=== PATIENT | female | born 2000 | race Caucasian/White ===

== ENCOUNTER 2018-10-23 19:00 | Inpatient (IN) | payer SELFPAY ==
--- NOTE | 2018-10-23 19:28 | PDOC ---
Rapid Medical Evaluation Medical Evaluation: 10/23/18 19:23 I have performed a brief in-person evaluation of this patient. The patient presents with a chief complaint of:Fever w/ cough, bodyaches, weakness and n/v x several days. No sob/CP. No sick contacts or recent travel. No sig hx Pertinent physical exam findings:T 104.6, HR 145, ill appearing I have ordered the following:labs/flu/cxr The patient will proceed to the ED for further evaluation Discharge Disposition - Diagnosis Malaise - Referrals - Patient Instructions - Post Discharge Activity
[2018-10-23] MEDS ORDERED: ACETAMINOPHEN 325 MG TABLET (FP) PO ONE (19:33)
[2018-10-23] MEDS ORDERED: SODIUM CHLORIDE 1,000 ML IV STA (19:33)
[2018-10-23] MEDS ORDERED: ONDANSETRON 4 MG/2 ML VIAL IVPUSH ONE (19:41)
[2018-10-23] MEDS ORDERED: ACETAMINOPHEN 1000 MG/100 ML VIAL (NON FORMULARY) IVPB ONE (20:03)
[2018-10-23] MEDS ORDERED: ALBUTEROL SO4 2.5/IPRATROPIUM 0.5 INH SOL 3 ML VIAL.NEB. NEB ONE (20:03)
[2018-10-23 20:08] LABS: BASO % 0.3 % (0-2.0); HEMATOCRIT 37.9 % (32.4-45.2); HEMOGLOBIN 12.6 GM/dL (10.7-15.3); LYMPH % 7.8 % (8-40); MCH 22.6 pg (25.7-33.7); MCHC 33.1 g/dl (32.0-36.0); MEAN CELL VOLUME 68.3 fl (80-96); MEAN PLT VOLUME 7.8 fl (7.5-11.1); MONO % 7.8 % (3.8-10.2); NEUT % 84.1 % (42.8-82.8); PLATELET COUNT 320 K/MM3 (134-434); RBC 5.56 M/mm3 (3.60-5.2); RDW 14.2 % (11.6-15.6)
--- NOTE | 2018-10-23 20:11 | PDOC ---
History of Present Illness - General Chief Complaint: Cold Symptoms Stated Complaint: FEVER Time Seen by Provider: 10/23/18 19:20 History Source: Patient Exam Limitations: No Limitations - History of Present Illness Initial Comments: 10/23/18 20:05 18 year old female with PMH asthma presented to ED for N/V/D/fever x2-3 days. She stated her fever was 104F today, but she did not take tylenol. She admitted to productive white cough, vomiting 5 times a day (yellow, denied blood), diarrhea 5 times a day (brown, loose, denied blood). She stated her LMP was yesterday. She denied abdominal pain, chest pain, palpitations, dysuria. Pt denied past intubations for asthma, stated last hospital admission for asthma was multiple years ago, uses albuterol inhaler 1X a week. Allergies: PCN (airway swelling) Past History - Past Medical History Allergies/Adverse Reactions: Allergies Allergy/AdvReac Type Severity Reaction Status Date / Time Penicillins Allergy Severe Hives Verified 10/23/18 20:42 Home Medications: Ambulatory Orders NK [No Known Home Medication] 10/23/18 COPD: No - Suicide/Smoking/Psychosocial Hx Smoking History: Never smoked Have you smoked in the past 12 months: No Information on smoking cessation initiated: No Hx Alcohol Use: No Drug/Substance Use Hx: No Review of Systems - Review of Systems Able to Perform ROS?: Yes Comments:: 10/23/18 20:07 General: denied fever, chills, night sweats, generalized weakness. HEENT: denied sore throat, rhinorrhea, ear pain. Heart: denied chest pain, palpitations, syncope, lower extremity swelling, diaphoresis. Respiratory: admitted to cough, shortness of breath, sputum production. denied hemoptysis. Abdomen: admitted to nausea, vomiting, diarrhea. denied abdominal pain, constipation, blood in stool. : denied dysuria, increased urinary frequency, hematuria, urinary incontinence , flank pain. Back: denied back pain. Musculoskeletal: admitted to body aches. Neurological: denied headache, dizziness, numbness, tingling, weakness. Skin: denied rash, laceration, abrasion. *Physical Exam - Vital Signs Last Vital Signs Temp Pulse Resp BP Pulse Ox 104.6 F H 145 H 18 126/81 100 10/23/18 19:27 10/23/18 19:27 10/23/18 19:27 10/23/18 19:27 10/23/18 19:27 - Physical Exam Comments: 10/23/18 20:10 Constitutional: Well-nourished, Well-developed, appearing stated age. HEENT: head is normocephalic, atraumatic. EOMI. PERRLA. no posterior pharyngeal erythema. no tonsillar exudates. Neck: supple. Full ROM. Heart: regular rhythm. no murmurs, rubs or gallops. Lungs: wheezing bilaterally. no crackles/rhonchi. Abdomen: soft, nontender. normal bowel sounds. no rebound, guarding, masses. Extremities: Peripheral pulses intact. No lower extremity edema. Neurological: CN 2-12 grossly intact. Moves all four extremities. Psych: awake, alert, oriented x3. Follows commands. Answers questions appropriately. Moderate Sedation - Procedure Monitoring Vital Signs: Procedure Monitoring Vital Signs Temperature 104.6 F H 10/23/18 19:27 Pulse Rate 145 H 10/23/18 19:27 Respiratory Rate 18 10/23/18 19:27 Blood Pressure 126/81 10/23/18 19:27 O2 Sat by Pulse Oximetry (%) 100 10/23/18 19:27 ED Treatment Course - LABORATORY CBC & Chemistry Diagram: 10/24/18 05:00 10/24/18 05:00 Medical Decision Making - Medical Decision Making 10/23/18 20:19 MDM: 18 year old female with above PMH presented to ED for nausea/vomiting/ diarrhea/sore throat/productive cough/body aches x2-3 days. Initial Vital Signs Temp Pulse Resp BP Pulse Ox 104.6 F H 145 H 18 126/81 100 10/23/18 19:27 10/23/18 19:27 10/23/18 19:27 10/23/18 19:27 10/23/18 19:27 Febrile. Tachycardic. No tachypnea. Within normal range of blood pressure for age. No hypoxia on room air. Labs ordered: CBC, CMP, UA/UC, urine , influenza A/B testing Imaging ordered: CXR Medications ordered: duonebs, zofran, 1000 cc bolus normal saline, methylprednisolone EKG performed at 2134: rate 116, regular rhythm, QTC 458, flat T in aVL. no U wave. no RI prolongation. CBC WBC 29.7 K/mm3 (4.0-10.0) H 10/23/18 20:00 RBC 5.56 M/mm3 (3.60-5.2) H 10/23/18 20:00 Hgb 12.6 GM/dL (10.7-15.3) 10/23/18 20:00 Hct 37.9 % (32.4-45.2) 10/23/18 20:00 MCV 68.3 fl (80-96) L 10/23/18 20:00 MCH 22.6 pg (25.7-33.7) L 10/23/18 20:00 MCHC 33.1 g/dl (32.0-36.0) 10/23/18 20:00 RDW 14.2 % (11.6-15.6) 10/23/18 20:00 Plt Count 320 K/MM3 (134-434) 10/23/18 20:00 MPV 7.8 fl (7.5-11.1) 10/23/18 20:00 Absolute Neuts (auto) 25.0 K/mm3 (1.5-8.0) H 10/23/18 20:00 Neutrophils % 84.1 % (42.8-82.8) H 10/23/18 20:00 Lymphocytes % 7.8 % (8-40) L 10/23/18 20:00 Monocytes % 7.8 % (3.8-10.2) 10/23/18 20:00 Eosinophils % 0.0 % (0-4.5) 10/23/18 20:00 Basophils % 0.3 % (0-2.0) 10/23/18 20:00 Nucleated RBC % 0 % (0-0) 10/23/18 20:00 Leukocytosis with left shift. No anemia. No thrombocytopenia. CMP Sodium 135 mmol/L (136-145) L 10/23/18 20:00 Potassium 3.1 mmol/L (3.5-5.1) L 10/23/18 20:00 Chloride 99 mmol/L (98-107) 10/23/18 20:00 Carbon Dioxide 23 mmol/L (21-32) 10/23/18 20:00 Anion Gap 14 MMOL/L (8-16) 10/23/18 20:00 BUN 8 mg/dL (7-18) 10/23/18 20:00 Creatinine 1.1 mg/dL (0.55-1.3) 10/23/18 20:00 Creat Clearance w eGFR > 60 (>60) 10/23/18 20:00 Random Glucose 126 mg/dL (74-106) H 10/23/18 20:00 Calcium 8.5 mg/dL (8.5-10.1) 10/23/18 20:00 Total Bilirubin 1.1 mg/dL (0.2-1) H 10/23/18 20:00 AST 7 U/L (15-37) L 10/23/18 20:00 ALT 13 U/L (13-61) 10/23/18 20:00 Alkaline Phosphatase 123 U/L (45-117) H 10/23/18 20:00 Total Protein 7.6 g/dl (6.4-8.2) 10/23/18 20:00 Albumin 3.3 g/dl (3.4-5.0) L 10/23/18 20:00 Hypokalemia. No transaminitis. No COREY. Normal cardiac enzymes. Mild elevation of ALP. Medications ordered: Kcl 10 mEq x3. Pt to receive 10 mEq per hour. Urine Test Results Urine Color Apple 10/23/18 20:15 Urine Appearance Slcloudy 10/23/18 20:15 Urine pH 5.0 (5.0-8.0) 10/23/18 20:15 Ur Specific [place] 1.032 (1.010-1.035) 10/23/18 20:15 Urine Protein 2+ (NEGATIVE) H 10/23/18 20:15 Urine Glucose (UA) Negative (NEGATIVE) 10/23/18 20:15 Urine Ketones 1+ (NEGATIVE) H 10/23/18 20:15 Urine Blood 1+ (NEGATIVE) H 10/23/18 20:15 Urine Nitrite Negative (NEGATIVE) 10/23/18 20:15 Urine Bilirubin Negative (<2.0 mg/dL) 10/23/18 20:15 Ur Leukocyte Esterase Negative (NEGATIVE) 10/23/18 20:15 Urine test negative. No evidence of UTI. Ketones, blood and protein in urine. 10/23/18 21:23 Influenza testing negative. 10/23/18 21:27 Pt reassessed, stated she feels her breathing and body aches have improved. Lung examination: wheezing bilaterally. Influenza testing negative. 10/23/18 21:47 CXR: LLL infiltrate concerning for pneumonia. Medications ordered: Levaquin 750 mg - Pt is pcn allergic Vital Signs Temperature 100.3 F H 10/23/18 21:49 Pulse Rate 111 H 10/23/18 21:49 Respiratory Rate 18 10/23/18 21:49 Blood Pressure 141/83 10/23/18 21:49 O2 Sat by Pulse Oximetry (%) 96 10/23/18 21:49 Febrile, but improving. Tachycardic, but improving. No hypotension. No hypoxia on room air. No tachypnea. I spoke with Dr. Poole about the case, who will admit the patient for pneumonia. *DC/Admit/Observation/Transfer Diagnosis at time of Disposition: Malaise, Febrile illness, Hypokalemia, Tachycardia, Asthma exacerbation, Pneumonia - Discharge Dispostion Condition at time of disposition: Improved Decision to Admit order: Yes - Referrals - Patient Instructions - Post Discharge Activity
[2018-10-23 20:15] LABS: WHITE BLOOD COUNT 29.7 K/mm3 (4.0-10.0)
--- NOTE | 2018-10-23 20:16 | PDOC ---
Attending Attestation - HPI HPI: 10/23/18 20:48 18YOF, with a significant past medical history of asthma, who presents to the emergency department with, 4 days of generalized weakness, body aches, productive cough, vomiting, diarrhea, and fevers (104.5F). Patient notes taking DayQuil and NyQuil, without relief prompting her visit to the ER tonight. No other sick contacts or travel. She denies recent dizziness. She denies recent dysuria, frequency, urgency or hematuria. She denies recent chest pain or shortness of breath. Allergies: Penicillins. Past surgical history: None reported. Social history: Nonsmoker. Denies EtOH use and recreational drug use. - Physicial Exam PE: 10/23/18 20:48 +malaise appearing, MMM, nl conjunctiva, anicteric; neck supple. +Bilateral wheezing, +Tachycardic, abdomen soft nontender. VAZQUEZ x4, no focal neuro deficits. No peripheral edema. normal color for ethnicity, WWP. <Isidoro Canela - Last Filed: 10/23/18 20:47> - Resident Resident Name: Falguni Dominguez - ED Attending Attestation I have performed the following: I have examined & evaluated the patient, The case was reviewed & discussed with the resident, I agree w/resident's findings & plan - Medical Decision Making 10/23/18 20:44 I, Kaylee Diallo MD, attest that this document has been prepared under my direction and personally reviewed by me in its entirety. I further attest, that it accurately reflects all work, treatment, procedures and medical decision -making performed by me. DDx. viral syndrome, influenza, dehydration, electrolyte/metabolic derangements , lactic acidosis, pneumonia, asthma exacerbation, gastroenteritis. See HPI for details Vital signs reviewed, +fever 104, +tachycardic to 140s; no respiratory distress , though wheezing. Prior notes reviewed, including admissions, discharges and consultations. laboratory results and imaging reviewed, basic labs, notable for +Leukocytosis of 29K, low potassium 3.1 - repleated, otherwise wnl. also normal lactic, reassuring. UA_negative for infection, neg preg test. Flu negative CXR_?infiltrate, hilar prominance, suspected pneumonia EKG sinus tachycardia, no interval abnormalities, narrow QRS, ST and T wave segments and morphology normal. Nonspecific T wave abnormalities ED course: potassium repleted with K-rider, IVF hydration copiously, tylenol, zofran. blood cultures pending. repeat VS improved, defervesced cxr +pneumonia, treat with Levaquin IV abx given severity of sx Dispo: Admit for supportive care, hydration, febrile illness 2/2 pneumonia, dehydration, electrolyte abnormalities. Discussed results and management plan with pt at bedside, agree with impression and plan 10/23/18 22:29 10/23/18 22:30 <Kaylee Diallo - Last Filed: 10/23/18 22:31> Heart Score/ECG Review - ECG Impressions Normal ECG: No Tachycardia: Sinus Comment:: 10/23/18 22:29 EKG sinus tachycardia, no interval abnormalities, narrow QRS, ST and T wave segments and morphology normal. Nonspecific T wave abnormalities <Kaylee Diallo - Last Filed: 10/23/18 22:31> Attestations - Attestations 10/23/18 20:48 Documentation prepared by Isidoro Canela, acting as medical affairs manager for Kaylee Diallo MD. <Isidroo Canela - Last Filed: 10/23/18 20:47>
[2018-10-23 20:35] LABS: URINE APPEARANCE SLCLOUDY; URINE BILIRUBIN NEGATIVE (<2.0 mg/dL); URINE COLOR AMBER; URINE GLUCOSE (UA) NEGATIVE (NEGATIVE); URINE KETONE 1+ (NEGATIVE); URINE LEUK ESTERASE NEGATIVE (NEGATIVE); URINE NITRITE NEGATIVE (NEGATIVE); URINE PROTEIN 2+ (NEGATIVE)
[2018-10-23 20:40] LABS: ALBUMIN 3.3 g/dl (3.4-5.0); ALK PHOS 123 U/L (45-117); ANION GAP 14 MMOL/L (8-16); BILIRUBIN,TOTAL 1.1 mg/dL (0.2-1); BLOOD UREA NITROGEN 8 mg/dL (7-18); CALCIUM 8.5 mg/dL (8.5-10.1); CHLORIDE 99 mmol/L (98-107); CO2 23 mmol/L (21-32); CREATININE 1.1 mg/dL (0.55-1.3); GLUCOSE,RANDOM 126 mg/dL (74-106); POTASSIUM 3.1 mmol/L (3.5-5.1); SGOT/AST 7 U/L (15-37); SGPT/ALT 13 U/L (13-61); SODIUM 135 mmol/L (136-145); TOT PROT 7.6 g/dl (6.4-8.2)
[2018-10-23] MEDS ORDERED: methylPREDNISolone NA SUCC 125 MG/2 ML VIAL IVPUSH ONE (20:42)
[2018-10-23] MEDS ORDERED: KCL 10 MEQ IVPB 30 MEQ/300 ML INFUS.BAG IVPB ONE (20:51)
[2018-10-23] MEDS ORDERED: methylPREDNISolone NA SUCC 125 MG/2 ML VIAL ONE (20:51)
[2018-10-23 20:54] LABS: EPI CELLS RARE /HPF (FEW); URINE MUCUS MANY
[2018-10-23 20:57] LABS: PLATELET ESTIMATE ADEQUATE
[2018-10-23] MEDS ORDERED: AZITHROMYCIN 500 MG TABLET PO ONE (21:49)
[2018-10-23] MEDS ORDERED: ONDANSETRON 4 MG/2 ML VIAL IVPB PRN (21:54)
--- NOTE | 2018-10-23 21:59 | HP ---
Admitting History and Physical - Primary Care Physician PCP: Pushpa Poole - Admission History of Present Illness: 18 year old female with PMH asthma presented to ED for N/V/D/fever x2-3 days. She stated her fever was 104F today, but she did not take tylenol. She admitted to productive white cough, vomiting 5 times a day (yellow, denied blood), diarrhea 5 times a day (brown, loose, denied blood). She stated her LMP was yesterday. She denied abdominal pain, chest pain, palpitations, dysuria. Pt denied past intubations, stated last hospital admission for asthma was multiple years ago, uses albuterol inhaler 1X a week. - Past Medical History Pulmonary: Yes: Asthma - Smoking History Smoking history: Never smoked Have you smoked in the past 12 months: No - Alcohol/Substance Use Hx Alcohol Use: No Home Medications - Allergies Allergies/Adverse Reactions: Allergies Allergy/AdvReac Type Severity Reaction Status Date / Time Penicillins Allergy Severe Hives Verified 10/23/18 20:42 - Home Medications Home Medications: Ambulatory Orders Levofloxacin [Levaquin] 500 mg PO DAILY #7 tablet 10/24/18 Albuterol Sulfate Inhaler - [Ventolin HFA Inhaler -] 1 puff IH Q4H #1 inhaler Prednisone 10 mg PO ASDIR #30 tablet 10/25/18 Physical Examination Vital Signs: Vital Signs Temperature 100.3 F H 10/23/18 21:49 Pulse Rate 111 H 10/23/18 21:49 Respiratory Rate 18 10/23/18 21:49 Blood Pressure 141/83 10/23/18 21:49 O2 Sat by Pulse Oximetry (%) 96 10/23/18 21:49 Constitutional: Yes: Calm HENT: Yes: Atraumatic Neck: Yes: Supple Cardiovascular: Yes: Regular Rate and Rhythm Respiratory: Yes: Rales, Rhonchi, Wheezes Gastrointestinal: Yes: Normal Bowel Sounds Extremities: Yes: WNL Edema: No Neurological: Yes: Alert, Oriented Labs: CBC, BMP 10/23/18 20:00 10/23/18 20:00 Imaging - Results X-ray: Report Reviewed, Image Reviewed Problem List - Problems (1) Asthma exacerbation Assessment/Plan: prn nebs iv steroids pulmonary consult Code(s): J45.901 - UNSPECIFIED ASTHMA WITH (ACUTE) EXACERBATION (2) Hypokalemia Assessment/Plan: will replace Code(s): E87.6 - HYPOKALEMIA (3) Pneumonia Assessment/Plan: iv abx prn tylenol for fever Code(s): J18.9 - PNEUMONIA, UNSPECIFIED ORGANISM Assessment/Plan Laboratory Tests 10/23/18 10/23/18 10/23/18 19:34 20:00 20:00 WBC 29.7 H RBC 5.56 H Hgb 12.6 Hct 37.9 MCV 68.3 L MCH 22.6 L MCHC 33.1 RDW 14.2 Plt Count 320 MPV 7.8 Absolute Neuts (auto) 25.0 H Neutrophils % 84.1 H Neutrophils % (Manual) 80.0 Band Neutrophils % 6.0 Lymphocytes % 7.8 L Lymphocytes % (Manual) 8.0 Monocytes % 7.8 Monocytes % (Manual) 3 L Eosinophils % 0.0 Eosinophils % (Manual) 0.0 Basophils % 0.3 Basophils % (Manual) 0.0 Nucleated RBC % 0 Platelet Estimate Adequate Microcytosis 1+ Sodium 135 L Potassium 3.1 L Chloride 99 Carbon Dioxide 23 Anion Gap 14 BUN 8 Creatinine 1.1 Creat Clearance w eGFR > 60 Random Glucose 126 H Lactic Acid Calcium 8.5 Total Bilirubin 1.1 H AST 7 L ALT 13 Alkaline Phosphatase 123 H Total Protein 7.6 Albumin 3.3 L Urine Color Urine Appearance Urine pH Ur Specific [place] Urine Protein Urine Glucose (UA) Urine Ketones Urine Blood Urine Nitrite Urine Bilirubin Urine Urobilinogen Ur Leukocyte Esterase Urine WBC (Auto) Urine RBC (Auto) Ur Epithelial Cells Urine Mucus Urine HCG, Qual Influenza A (Rapid) Negative Influenza B (Rapid) Negative 10/23/18 10/23/18 10/23/18 20:00 20:15 20:15 WBC RBC Hgb Hct MCV MCH MCHC RDW Plt Count MPV Absolute Neuts (auto) Neutrophils % Neutrophils % (Manual) Band Neutrophils % Lymphocytes % Lymphocytes % (Manual) Monocytes % Monocytes % (Manual) Eosinophils % Eosinophils % (Manual) Basophils % Basophils % (Manual) Nucleated RBC % Platelet Estimate Microcytosis Sodium Potassium Chloride Carbon Dioxide Anion Gap BUN Creatinine Creat Clearance w eGFR Random Glucose Lactic Acid 1.1 Calcium Total Bilirubin AST ALT Alkaline Phosphatase Total Protein Albumin Urine Color [place] Urine Appearance Slcloudy Urine pH 5.0 Ur Specific [place] 1.032 Urine Protein 2+ H Urine Glucose (UA) Negative Urine Ketones 1+ H Urine Blood 1+ H Urine Nitrite Negative Urine Bilirubin Negative Urine Urobilinogen 2.0 H Ur Leukocyte Esterase Negative Urine WBC (Auto) 8 Urine RBC (Auto) 5 Ur Epithelial Cells Rare Urine Mucus Many Urine HCG, Qual Negative Influenza A (Rapid) Influenza B (Rapid) Active Medications Generic Name Dose Route Start Last Admin Trade Name Freq PRN Reason Stop Dose Admin Acetaminophen 1,000 mg 10/23/18 22:00 Ofirmev Injection - IVPB Q6H-IV BRYAN Potassium Chloride 10 meq in 100 mls @ 100 mls/hr 10/23/18 20:45 Potassium Chloride 10 Meq Premix Ivpb - IVPB 10/23/18 23:44 Q60M BRYAN Levofloxacin 750 mg in 150 mls @ 100 mls/hr 10/23/18 21:53 Levaquin 750 Mg Premixed Ivpb - IVPB 10/23/18 23:22 ONCE ONE Protocol Levofloxacin 500 mg in 100 mls @ 100 mls/hr 10/24/18 10:00 Levaquin 500 Mg Premixed Ivpb - IVPB DAILY BRYAN Protocol Sodium Chloride 1,000 mls @ 100 mls/hr 10/23/18 22:00 Normal Saline - IV ASDIR BRYAN Ondansetron HCl 4 mg 10/23/18 21:54 Zofran Injection IVPB Q4H PRN NAUSEA AND/OR VOMITING
[2018-10-23] MEDS ORDERED: SODIUM CHLORIDE 1,000 ML IV SCH (22:00)
[2018-10-23] MEDS ORDERED: ACETAMINOPHEN 1000 MG/100 ML VIAL (NON FORMULARY) IVPB SCH (22:00)
[2018-10-23] MEDS ORDERED: ACETAMINOPHEN 1000 MG/100 ML VIAL (NON FORMULARY) IVPB PRN (22:28)
[2018-10-23] MEDS ORDERED: IPRATROPIUM BR 0.02% 0.5 MG/2.5 ML VIAL.NEB. NEB PRN (22:30)
[2018-10-23] MEDS: KCL 10 MEQ IVPB 10 MEQ/100 ML INFUS.BAG IVPB SCH (22:45)
[2018-10-24] MEDS: KCL 10 MEQ IVPB 10 MEQ/100 ML INFUS.BAG IVPB SCH ×2 (01:05→03:24)
[2018-10-24] MEDS ORDERED: methylPREDNISolone NA SUCC 125 MG/2 ML VIAL ONE (03:35)
[2018-10-24] MEDS: methylPREDNISolone NA SUCC 40 MG/1 ML VIAL IVPUSH SCH ×3 (03:56→18:06)
[2018-10-24 05:33] LABS: BASO % 0.2 % (0-2.0); HEMOGLOBIN 11.2 GM/dL (10.7-15.3); LYMPH % 4.6 % (8-40); MCH 21.6 pg (25.7-33.7); MCHC 31.1 g/dl (32.0-36.0); MEAN CELL VOLUME 69.4 fl (80-96); MEAN PLT VOLUME 7.6 fl (7.5-11.1); MONO % 2.4 % (3.8-10.2); NEUT % 92.8 % (42.8-82.8); PLATELET COUNT 269 K/MM3 (134-434); RBC 5.19 M/mm3 (3.60-5.2); RDW 14.2 % (11.6-15.6); WHITE BLOOD COUNT 21.8 K/mm3 (4.0-10.0)
[2018-10-24 06:04] LABS: ALBUMIN 2.8 g/dl (3.4-5.0); ALK PHOS 109 U/L (45-117); ANION GAP 11 MMOL/L (8-16); BILIRUBIN,TOTAL 0.7 mg/dL (0.2-1); BLOOD UREA NITROGEN 8 mg/dL (7-18); CALCIUM 7.8 mg/dL (8.5-10.1); CHLORIDE 104 mmol/L (98-107); CO2 24 mmol/L (21-32); CREATININE 0.7 mg/dL (0.55-1.3); GLUCOSE,RANDOM 154 mg/dL (74-106); POTASSIUM 3.6 mmol/L (3.5-5.1); SGOT/AST 4 U/L (15-37); SGPT/ALT 12 U/L (13-61); SODIUM 138 mmol/L (136-145); TOT PROT 6.7 g/dl (6.4-8.2)
[2018-10-24 12:10] LABS: ANISOCYTOSIS 1+; MACROCYTOSIS 0; PLATELET ESTIMATE NORMAL
--- NOTE | 2018-10-24 12:57 | EKG ---
Test Reason : Blood Pressure : / mmHG Vent. Rate : 116 BPM Atrial Rate : 116 BPM P-R Int : 134 ms QRS Dur : 104 ms QT Int : 330 ms P-R-T Axes : 065 267 058 degrees QTc Int : 458 ms SINUS TACHYCARDIA RIGHT SUPERIOR AXIS DEVIATION ABNORMAL ECG NO PREVIOUS ECGS AVAILABLE Confirmed by Ko Sims ([id number]) on 10/24/2018 12:57:27 PM Referred By: Confirmed By:Ko Sims
[2018-10-24] MEDS ORDERED: ONDANSETRON 4 MG/2 ML VIAL IVPB PRN (13:40)
[2018-10-24] MEDS ORDERED: SODIUM CHLORIDE 1,000 ML IV SCH (13:40)
--- NOTE | 2018-10-24 14:21 | CON.ID ---
Consult Consult Specialty:: infectious diseases Referred by:: Reason for Consultation:: pneumonia - History of Present Illness Chief Complaint: cough fever,dirrhoea History of Present Illness: 18YOF, with a significant past medical history of asthma, who presents to the emergency department with, 4 days of generalized weakness, body aches, productive cough, vomiting, diarrhea, and fevers (104.5F). Patient notes taking DayQuil and NyQuil, without relief prompting her visit to the ER tonight. No other sick contacts or travel. She denies recent dizziness. She denies recent dysuria, frequency, urgency or hematuria. She denies recent chest pain or shortness of breath. currently patient is feeling much better also when worked up patient has leukocytosis which trending down and pneumonia on imaging studies patient allergic to pcn and was started on levaquin - History Source History Provided By: Patient Limitations to Obtaining History: No Limitations - Alcohol/Substance Use Hx Alcohol Use: No - Smoking History Smoking history: Never smoked Have you smoked in the past 12 months: No Home Medications - Allergies Allergies/Adverse Reactions: Allergies Allergy/AdvReac Type Severity Reaction Status Date / Time Penicillins Allergy Severe Hives Verified 10/23/18 20:42 - Home Medications Home Medications: Ambulatory Orders NK [No Known Home Medication] 10/23/18 Review of Systems - Review of Systems Constitutional: reports: Fever, Weakness Eyes: reports: No Symptoms HENT: reports: No Symptoms Neck: reports: No Symptoms Cardiovascular: reports: No Symptoms Respiratory: reports: Cough, SOB, Other (cough) Gastrointestinal: reports: Diarrhea Genitourinary: reports: No Symptoms Musculoskeletal: reports: No Symptoms Integumentary: reports: No Symptoms Neurological: reports: No Symptoms Endocrine: reports: No Symptoms Hematology/Lymphatic: reports: No Symptoms Psychiatric: reports: No Symptoms Physical Exam Vital Signs: Vital Signs Temperature 97.9 F 10/24/18 13:11 Pulse Rate 74 10/24/18 13:11 Respiratory Rate 18 10/24/18 13:11 Blood Pressure 124/76 10/24/18 13:11 O2 Sat by Pulse Oximetry (%) 98 10/24/18 13:11 Constitutional: Yes: Well Nourished, No Distress, Calm, Obese Eyes: Yes: Conjunctiva Clear HENT: Yes: Atraumatic, Normocephalic Neck: Yes: Supple, Trachea Midline Cardiovascular: Yes: Regular Rate and Rhythm Respiratory: Yes: Regular, Other (crackles) Gastrointestinal: Yes: Normal Bowel Sounds, Soft Musculoskeletal: Yes: WNL Extremities: Yes: WNL Neurological: Yes: Alert, Oriented Psychiatric: Yes: Alert, Oriented Labs: CBC, BMP 10/24/18 05:00 10/24/18 05:00 Imaging - Results Chest X-ray: Report Reviewed, Image Reviewed Assessment/Plan fever pna cough dirrhoea plan continue levaquin hydration rest as per the team incentive deepak
[2018-10-24 14:54] VITALS: BMI 32.1
[2018-10-24] MEDS ORDERED: methylPREDNISolone NA SUCC 40 MG/1 ML VIAL IVPUSH SCH (15:00)
--- NOTE | 2018-10-24 16:53 | CON.PULM ---
Consult Consult Specialty:: PULM/CCM Referred by:: NADIA Reason for Consultation:: SOB - History of Present Illness Chief Complaint: SOB History of Present Illness: 18 F, with PMH of Mild Intermittent Asthma. Never intubated, not steroid dependent, usual use of MDI usually once or twice a month, and unknown PEF. Last admission for AE of Asthma was several years ago. Admitted via the ER due to productive cough for the last 3 days. No hemoptysis. Reports vomiting and loose stools. She denies seasonal allergies. No significant GERD history. Denies history consistent with OSAS. CXR: LLL infiltrate - History Source History Provided By: Patient Limitations to Obtaining History: No Limitations - Past Medical History Pulmonary: Yes: Asthma, Bronchitis. No: O2 Dependent, Pneumonia, Previously Intubated, Pulmonary Embolus, Pulmonary Fibrosis, Sleep Apnea - Alcohol/Substance Use Hx Alcohol Use: No - Smoking History Smoking history: Never smoked Have you smoked in the past 12 months: No Home Medications - Allergies Allergies/Adverse Reactions: Allergies Allergy/AdvReac Type Severity Reaction Status Date / Time Penicillins Allergy Severe Hives Verified 10/23/18 20:42 - Home Medications Home Medications: Ambulatory Orders NK [No Known Home Medication] 10/23/18 Review of Systems - Review of Systems Constitutional: reports: Chills, Fever, Lethargy, Loss of Appetite, Malaise. denies: Night Sweats, Unintentional Wgt. Loss Eyes: reports: No Symptoms HENT: reports: No Symptoms Neck: reports: No Symptoms Cardiovascular: reports: Shortness of Breath. denies: Chest Pain, Edema, Palpitations Respiratory: reports: Cough, SOB, SOB on Exertion, Wheezing. denies: Hemoptysis , Snoring Gastrointestinal: reports: No Symptoms Genitourinary: reports: No Symptoms Breasts: reports: No Symptoms Reported Musculoskeletal: reports: No Symptoms Integumentary: reports: No Symptoms Neurological: reports: No Symptoms Endocrine: reports: No Symptoms Hematology/Lymphatic: reports: No Symptoms Psychiatric: reports: No Symptoms Physical Exam Vital Sings: Vital Signs Temperature 98.0 F 10/24/18 14:41 Pulse Rate 94 H 10/24/18 14:41 Respiratory Rate 20 10/24/18 14:41 Blood Pressure 98/56 L 10/24/18 14:41 O2 Sat by Pulse Oximetry (%) 96 10/24/18 14:41 Constitutional: Yes: No Distress, Obese Eyes: Yes: Conjunctiva Clear, EOM Intact HENT: Yes: Atraumatic, Normocephalic Neck: Yes: Supple, Trachea Midline Cardiovascular: Yes: Regular Rate and Rhythm Respiratory: Yes: Cough, Diminished, Rhonchi, SOB, SOB on Exertion, Tachypnea, Wheezes. No: Accessory Muscle Use, Rales, Stridor ...Inspection: Yes: WNL ...Clubbing: No Gastrointestinal: Yes: WNL, Normal Bowel Sounds, Soft Renal/: Yes: WNL Musculoskeletal: Yes: WNL Extremities: Yes: WNL Edema: No Peripheral Pulses WNL: Yes Integumentary: Yes: WNL Neurological: Yes: WNL, Alert, Oriented ...Motor Strength: WNL Psychiatric: Yes: WNL, Alert, Oriented Labs: CBC, BMP 10/24/18 05:00 10/24/18 05:00 Imaging - Results Chest X-ray: Report Reviewed, Image Reviewed Problem List - Problems (1) Asthma exacerbation Code(s): J45.901 - UNSPECIFIED ASTHMA WITH (ACUTE) EXACERBATION (2) Febrile illness Code(s): R50.9 - FEVER, UNSPECIFIED (3) Malaise Code(s): R53.81 - OTHER MALAISE (4) Pneumonia Code(s): J18.9 - PNEUMONIA, UNSPECIFIED ORGANISM (5) Tachycardia Code(s): R00.0 - TACHYCARDIA, UNSPECIFIED Assessment/Plan ABX per ID O2 as needed BD TX Measure PEF PFTs after stable after discharge VTE prophylaxis Medrol No smoking advised Will follow Thank you. Dr William
[2018-10-24] MEDS ORDERED: ACETAMINOPHEN 325 MG TABLET (FP) PO PRN (16:56)
--- NOTE | 2018-10-24 16:59 | PN ---
Progress Note, Physician History of Present Illness: feeling better has cough - Current Medication List Current Medications: Active Medications Acetaminophen (Ofirmev Injection -) 1,000 mg IVPB Q6H-IV PRN PRN Reason: FEVER Acetaminophen (Tylenol -) 650 mg PO Q6H PRN PRN Reason: FEVER Levofloxacin (Levaquin 500 Mg Premixed Ivpb -) 500 mg in 100 mls @ 100 mls/hr IVPB DAILY BRYAN; Protocol Ipratropium [place] (Atrovent 0.02% Nebulizer -) 1 amp NEB Q6H PRN PRN Reason: DYSPEPSIA Stop: 10/30/18 22:30 Methylprednisolone Sodium Succinate (Solu-Medrol -) 60 mg IVPUSH Q8H-IV BRYAN Ondansetron HCl (Zofran Injection) 4 mg IVPB Q4H PRN PRN Reason: NAUSEA AND/OR VOMITING - Objective Vital Signs: Vital Signs Temperature 98.0 F 10/24/18 14:41 Pulse Rate 94 H 10/24/18 14:41 Respiratory Rate 20 10/24/18 14:41 Blood Pressure 98/56 L 10/24/18 14:41 O2 Sat by Pulse Oximetry (%) 96 10/24/18 14:41 Constitutional: Yes: No Distress HENT: Yes: Atraumatic Neck: Yes: Supple Cardiovascular: Yes: Regular Rate and Rhythm Respiratory: Yes: Rales, Rhonchi, Wheezes Gastrointestinal: Yes: Normal Bowel Sounds Extremities: Yes: WNL Edema: No Peripheral Pulses WNL: Yes Neurological: Yes: Alert, Oriented Labs: CBC, BMP 10/24/18 05:00 10/24/18 05:00 Problem List - Problems (1) Asthma exacerbation Assessment/Plan: prn nebs iv steroids...taper Code(s): J45.901 - UNSPECIFIED ASTHMA WITH (ACUTE) EXACERBATION (2) Hypokalemia Assessment/Plan: resolved Code(s): E87.6 - HYPOKALEMIA (3) Pneumonia Assessment/Plan: iv abx Code(s): J18.9 - PNEUMONIA, UNSPECIFIED ORGANISM
[2018-10-25] MEDS: methylPREDNISolone NA SUCC 40 MG/1 ML VIAL IVPUSH SCH ×2 (02:25→10:17)
[2018-10-25 07:01] LABS: BASO % 0.2 % (0-2.0); HEMATOCRIT 36.3 % (32.4-45.2); HEMOGLOBIN 11.4 GM/dL (10.7-15.3); LYMPH % 6.4 % (8-40); MCH 21.7 pg (25.7-33.7); MCHC 31.4 g/dl (32.0-36.0); MEAN CELL VOLUME 69.2 fl (80-96); MEAN PLT VOLUME 7.9 fl (7.5-11.1); MONO % 3.4 % (3.8-10.2); PLATELET COUNT 362 K/MM3 (134-434); RBC 5.24 M/mm3 (3.60-5.2); RDW 14.4 % (11.6-15.6); WHITE BLOOD COUNT 26.6 K/mm3 (4.0-10.0)
[2018-10-25 07:23] LABS: ANION GAP 9 MMOL/L (8-16); BLOOD UREA NITROGEN 12 mg/dL (7-18); CALCIUM 8.6 mg/dL (8.5-10.1); CHLORIDE 106 mmol/L (98-107); CO2 26 mmol/L (21-32); CREATININE 0.7 mg/dL (0.55-1.3); GLUCOSE,RANDOM 132 mg/dL (74-106); POTASSIUM 3.7 mmol/L (3.5-5.1); SODIUM 141 mmol/L (136-145)
[2018-10-25 07:24] LABS: ALBUMIN 2.7 g/dl (3.4-5.0); ALK PHOS 110 U/L (45-117); BILIRUBIN,TOTAL 0.2 mg/dL (0.2-1); SGOT/AST 11 U/L (15-37); SGPT/ALT 18 U/L (13-61); TOT PROT 6.8 g/dl (6.4-8.2)
[2018-10-25 09:48] LABS: ANISOCYTOSIS 1+; MACROCYTOSIS 0; PLATELET ESTIMATE NORMAL
[2018-10-25] MEDS ORDERED: PT OWN MED DRAWER 7, Y5N ONE (09:51)
--- NOTE | 2018-10-25 12:48 | PN ---
Progress Note, Physician History of Present Illness: feeling better no cough no dirrhoea still with inspiratory wheeze - Current Medication List Current Medications: Active Medications Acetaminophen (Ofirmev Injection -) 1,000 mg IVPB Q6H-IV PRN PRN Reason: FEVER Acetaminophen (Tylenol -) 650 mg PO Q6H PRN PRN Reason: FEVER Levofloxacin (Levaquin 500 Mg Premixed Ivpb -) 500 mg in 100 mls @ 100 mls/hr IVPB DAILY BRYAN; Protocol Last Admin: 10/25/18 10:17 Dose: 100 mls/hr Ipratropium [place] (Atrovent 0.02% Nebulizer -) 1 amp NEB Q6H PRN PRN Reason: DYSPEPSIA Stop: 10/30/18 22:30 Methylprednisolone Sodium Succinate (Solu-Medrol -) 60 mg IVPUSH Q8H-IV RBYAN Last Admin: 10/25/18 10:17 Dose: 60 mg Ondansetron HCl (Zofran Injection) 4 mg IVPB Q4H PRN PRN Reason: NAUSEA AND/OR VOMITING - Objective Vital Signs: Vital Signs Temperature 98.1 F 10/25/18 10:00 Pulse Rate 75 10/25/18 10:00 Respiratory Rate 20 10/25/18 10:00 Blood Pressure 141/67 10/25/18 10:00 O2 Sat by Pulse Oximetry (%) 96 10/25/18 09:00 Constitutional: Yes: No Distress, Calm, Obese Cardiovascular: Yes: Regular Rate and Rhythm Respiratory: Yes: Regular, Wheezes, Other Gastrointestinal: Yes: Normal Bowel Sounds, Soft Musculoskeletal: Yes: WNL Extremities: Yes: WNL Neurological: Yes: Alert, Oriented Psychiatric: Yes: Alert, Oriented Labs: CBC, BMP 10/25/18 06:00 10/25/18 06:00 Assessment/Plan fever pna cough dirrhoea plan continue levaquin hydration rest as per the team incentive deepak steroids
--- NOTE | 2018-10-25 12:56 | PN ---
Progress Note, Physician History of Present Illness: PULMONARY ALERT,FEELING BETTER,LESS DYSPNEIC,LESS COUGH - Current Medication List Current Medications: Active Medications Acetaminophen (Ofirmev Injection -) 1,000 mg IVPB Q6H-IV PRN PRN Reason: FEVER Acetaminophen (Tylenol -) 650 mg PO Q6H PRN PRN Reason: FEVER Levofloxacin (Levaquin 500 Mg Premixed Ivpb -) 500 mg in 100 mls @ 100 mls/hr IVPB DAILY BRYAN; Protocol Last Admin: 10/25/18 10:17 Dose: 100 mls/hr Ipratropium [place] (Atrovent 0.02% Nebulizer -) 1 amp NEB Q6H PRN PRN Reason: DYSPEPSIA Stop: 10/30/18 22:30 Methylprednisolone Sodium Succinate (Solu-Medrol -) 60 mg IVPUSH Q8H-IV BRYAN Last Admin: 10/25/18 10:17 Dose: 60 mg Ondansetron HCl (Zofran Injection) 4 mg IVPB Q4H PRN PRN Reason: NAUSEA AND/OR VOMITING - Objective Vital Signs: Vital Signs Temperature 98.1 F 10/25/18 10:00 Pulse Rate 75 10/25/18 10:00 Respiratory Rate 20 10/25/18 10:00 Blood Pressure 141/67 10/25/18 10:00 O2 Sat by Pulse Oximetry (%) 96 10/25/18 09:00 Constitutional: Yes: Well Nourished, Calm Eyes: Yes: WNL HENT: Yes: WNL Neck: Yes: WNL Cardiovascular: Yes: Regular Rate and Rhythm, S1, S2 Respiratory: Yes: Wheezes (SCATTERED [place] WHEEZES) Gastrointestinal: Yes: Normal Bowel Sounds, Soft Extremities: Yes: WNL Edema: No Labs: CBC, BMP 10/25/18 06:00 10/25/18 06:00 Assessment/Plan Problem List - Problems (1) Asthma exacerbation Code(s): J45.901 - UNSPECIFIED ASTHMA WITH (ACUTE) EXACERBATION (2) Febrile illness Code(s): R50.9 - FEVER, UNSPECIFIED (3) Malaise Code(s): R53.81 - OTHER MALAISE (4) Pneumonia Code(s): J18.9 - PNEUMONIA, UNSPECIFIED ORGANISM LLL (5) Tachycardia Code(s): R00.0 - TACHYCARDIA, UNSPECIFIED Assessment/Plan ABX per ID O2 as needed BD TX Measure PEF PFTs after discharge VTE prophylaxis Medrol taper follow up chest x-rays to document resolution of LLL pneumonia DR BEY
[2018-10-25] MEDS ORDERED: methylPREDNISolone NA SUCC 40 MG/1 ML VIAL IVPUSH SCH (12:59)
--- NOTE | 2018-10-25 14:48 | DS ---
Physical Examination Vital Signs: Vital Signs Temperature 98.1 F 10/25/18 10:00 Pulse Rate 75 10/25/18 10:00 Respiratory Rate 20 10/25/18 10:00 Blood Pressure 141/67 10/25/18 10:00 O2 Sat by Pulse Oximetry (%) 96 10/25/18 09:00 Constitutional: Yes: No Distress HENT: Yes: Atraumatic Neck: Yes: Supple Cardiovascular: Yes: Regular Rate and Rhythm Respiratory: Yes: Rhonchi Gastrointestinal: Yes: Normal Bowel Sounds Extremities: Yes: WNL Neurological: Yes: Alert, Oriented Labs: CBC, BMP 10/25/18 06:00 10/25/18 06:00 Discharge Summary Reason For Visit: EXACERBATION OF ASTHMA LEUKOCYTSIS TACHYCARDIA Current Active Problems Asthma exacerbation (Acute) Febrile illness (Acute) Hypokalemia (Acute) Malaise (Acute) Pneumonia (Acute) Tachycardia (Acute) Condition: Improved - Instructions Diet, Activity, Other Instructions: take cough syrup ..robitussin as needed every eight hours - Home Medications Comprehensive Discharge Medication List: Ambulatory Orders Levofloxacin [Levaquin] 500 mg PO DAILY #7 tablet 10/24/18 Prednisone 10 mg PO ASDIR #30 tablet 10/25/18 dc home pt feeling much better fu pmd on tuesday also fu ucx on tuesday
[2018-10-25] MEDS ORDERED: predniSONE 20 MG TABLET (UD) PO ONE (15:00)
--- NOTE | 2018-10-25 20:11 | PN ---
Progress Note, Physician History of Present Illness: feeling better has cough - Current Medication List Current Medications: Active Medications Acetaminophen (Ofirmev Injection -) 1,000 mg IVPB Q6H-IV PRN PRN Reason: FEVER Acetaminophen (Tylenol -) 650 mg PO Q6H PRN PRN Reason: FEVER Levofloxacin (Levaquin 500 Mg Premixed Ivpb -) 500 mg in 100 mls @ 100 mls/hr IVPB DAILY BRYAN; Protocol Last Admin: 10/25/18 10:17 Dose: 100 mls/hr Ipratropium [place] (Atrovent 0.02% Nebulizer -) 1 amp NEB Q6H PRN PRN Reason: DYSPEPSIA Stop: 10/30/18 22:30 Ondansetron HCl (Zofran Injection) 4 mg IVPB Q4H PRN PRN Reason: NAUSEA AND/OR VOMITING - Objective Vital Signs: Vital Signs Temperature 97.5 F L 10/25/18 18:43 Pulse Rate 82 10/25/18 18:43 Respiratory Rate 20 10/25/18 18:43 Blood Pressure 136/76 10/25/18 18:43 O2 Sat by Pulse Oximetry (%) 96 10/25/18 09:00 Constitutional: Yes: No Distress HENT: Yes: Atraumatic Neck: Yes: Supple Cardiovascular: Yes: Regular Rate and Rhythm Respiratory: Yes: Rhonchi Gastrointestinal: Yes: Normal Bowel Sounds Extremities: Yes: WNL Edema: No Peripheral Pulses WNL: Yes Neurological: Yes: Alert, Oriented Labs: CBC, BMP 10/25/18 06:00 10/25/18 06:00 Problem List - Problems (1) Asthma exacerbation Assessment/Plan: prn nebs will switch to po steroids clinically improving Code(s): J45.901 - UNSPECIFIED ASTHMA WITH (ACUTE) EXACERBATION (2) Hypokalemia Code(s): E87.6 - HYPOKALEMIA (3) Pneumonia Assessment/Plan: switch to po levaquin fu cbc tomorrow Code(s): J18.9 - PNEUMONIA, UNSPECIFIED ORGANISM
[2018-10-26 07:47] LABS: BASO % 0.4 % (0-2.0); HEMATOCRIT 34.1 % (32.4-45.2); HEMOGLOBIN 11.4 GM/dL (10.7-15.3); LYMPH % 16.3 % (8-40); MCH 23.1 pg (25.7-33.7); MCHC 33.5 g/dl (32.0-36.0); MEAN CELL VOLUME 68.9 fl (80-96); MONO % 5.4 % (3.8-10.2); NEUT % 77.9 % (42.8-82.8); PLATELET COUNT 381 K/MM3 (134-434); RBC 4.94 M/mm3 (3.60-5.2); RDW 14.2 % (11.6-15.6)
[2018-10-26 08:46] LABS: ALBUMIN 2.6 g/dl (3.4-5.0); ALK PHOS 92 U/L (45-117); ANION GAP 12 MMOL/L (8-16); BILIRUBIN,TOTAL 0.4 mg/dL (0.2-1); BLOOD UREA NITROGEN 19 mg/dL (7-18); CALCIUM 8.6 mg/dL (8.5-10.1); CHLORIDE 106 mmol/L (98-107); CO2 24 mmol/L (21-32); CREATININE 0.6 mg/dL (0.55-1.3); GLUCOSE,RANDOM 85 mg/dL (74-106); POTASSIUM 3.9 mmol/L (3.5-5.1); SGOT/AST 13 U/L (15-37); SGPT/ALT 21 U/L (13-61); SODIUM 141 mmol/L (136-145); TOT PROT 6.2 g/dl (6.4-8.2)
[2018-10-26] MEDS ORDERED: predniSONE 20 MG TABLET (UD) PO SCH (10:00)
--- NOTE | 2018-10-26 13:44 | PN ---
Progress Note, Physician History of Present Illness: patient doing well no issues breathing well wbc trending down - Current Medication List Current Medications: Active Medications Acetaminophen (Tylenol -) 650 mg PO Q6H PRN PRN Reason: FEVER Ipratropium [place] (Atrovent 0.02% Nebulizer -) 1 amp NEB Q6H PRN PRN Reason: DYSPEPSIA Stop: 10/30/18 22:30 Levofloxacin (Levaquin -) 500 mg PO DAILY@0600 [facility] Last Admin: 10/26/18 06:00 Dose: 500 mg Ondansetron HCl (Zofran Injection) 4 mg IVPB Q4H PRN PRN Reason: NAUSEA AND/OR VOMITING Prednisone (Deltasone -) 40 mg PO DAILY [facility] Last Admin: 10/26/18 09:17 Dose: 40 mg - Objective Vital Signs: Vital Signs Temperature 98.2 F 10/26/18 09:00 Pulse Rate 65 10/26/18 09:00 Respiratory Rate 20 10/26/18 09:00 Blood Pressure 122/86 10/26/18 09:00 O2 Sat by Pulse Oximetry (%) 95 10/26/18 09:00 Constitutional: Yes: No Distress, Calm, Obese Cardiovascular: Yes: Regular Rate and Rhythm Respiratory: Yes: Regular, CTA Bilaterally Gastrointestinal: Yes: Normal Bowel Sounds Musculoskeletal: Yes: WNL Extremities: Yes: WNL Neurological: Yes: Alert, Oriented Psychiatric: Yes: Alert, Oriented Labs: CBC, BMP 10/26/18 06:15 10/26/18 06:15 Assessment/Plan fever pna cough dirrhoea plan continue levaquin patient to get it for 5 more days incentive deepak rest as per the team
[2018-10-26 14:21] VITALS: BP 121/69; PULSE 60; TEMP 97.6
--- NOTE | 2018-10-26 14:59 | DS ---
Physical Examination Vital Signs: Vital Signs Temperature 97.6 F 10/26/18 14:18 Pulse Rate 60 10/26/18 14:18 Respiratory Rate 20 10/26/18 14:18 Blood Pressure 121/69 10/26/18 14:18 O2 Sat by Pulse Oximetry (%) 95 10/26/18 09:00 Constitutional: Yes: No Distress HENT: Yes: Atraumatic Neck: Yes: Supple Cardiovascular: Yes: Regular Rate and Rhythm Respiratory: Yes: CTA Bilaterally Gastrointestinal: Yes: Normal Bowel Sounds Extremities: Yes: WNL Edema: No Neurological: Yes: Alert, Oriented Labs: CBC, BMP 10/26/18 06:15 10/26/18 06:15 Discharge Summary Reason For Visit: EXACERBATION OF ASTHMA LEUKOCYTSIS TACHYCARDIA Current Active Problems Asthma exacerbation (Acute) Febrile illness (Acute) Hypokalemia (Acute) Malaise (Acute) Pneumonia (Acute) Tachycardia (Acute) Condition: Improved - Instructions Diet, Activity, Other Instructions: take cough syrup ..robitussin as needed every eight hours Disposition: HOME - Home Medications Comprehensive Discharge Medication List: Ambulatory Orders Levofloxacin [Levaquin] 500 mg PO DAILY #7 tablet 10/24/18 Albuterol Sulfate Inhaler - [Ventolin HFA Inhaler -] 1 puff IH Q4H #1 inhaler Prednisone 10 mg PO ASDIR #30 tablet 10/25/18 dc home
--- NOTE | 2018-10-26 15:08 | PN ---
Progress Note (short form) - Note Progress Note: PULMONARY Breathing slowly improving. +wheezing. No fevers. Vital Signs Period Temp Pulse Resp BP Sys/[place] Pulse Ox Last 24 Hr 97.1 F-98.2 F 60-82 20-20 107-141/46-86 95-96 Gen: NAD at rest Heart: RRR Lung: scattered rhonchi Abd: soft, nontender Ext: no edema CBC, BMP 10/26/18 06:15 10/26/18 06:15 Active Medications Acetaminophen (Tylenol -) 650 mg PO Q6H PRN PRN Reason: FEVER Ipratropium [place] (Atrovent 0.02% Nebulizer -) 1 amp NEB Q6H PRN PRN Reason: DYSPEPSIA Stop: 10/30/18 22:30 Levofloxacin (Levaquin -) 500 mg PO DAILY@0600 [facility] Last Admin: 10/26/18 06:00 Dose: 500 mg Ondansetron HCl (Zofran Injection) 4 mg IVPB Q4H PRN PRN Reason: NAUSEA AND/OR VOMITING Prednisone (Deltasone -) 40 mg PO DAILY [facility] Last Admin: 10/26/18 09:17 Dose: 40 mg A/P Pneumonia Acute Asthma Exacerbation - complete antibiotics - complete 5 day course of prednisone - inhaled bronchodilators - repeat CXR in 6-8 weeks to ensure resolution of infiltrate - can be discharged from pulmonary standpoint
== END 2018-10-26 15:43 | disposition home or self-care (01) | DRG 139 ==
LOC: JER 19:00 → JERBED 21:24 → J5S 10-24 13:34
PROVIDERS: ADMIT Internal Medicine; ATTEND Internal Medicine
DX: J18.9 Pneumonia, unspecified organism (principal); J45.901 Unspecified asthma with (acute) exacerbation; R00.0 Tachycardia, unspecified; E87.6 Hypokalemia; R50.9 Fever, unspecified; Z88.0 Allergy status to penicillin; E66.9 Obesity, unspecified; Z68.32 Body mass index [BMI] 32.0-32.9, adult; R19.7 Diarrhea, unspecified; R53.81 Other malaise
CPT/HCPCS: 36415; 71046-TC-FY; 80053; 81003; 81015; 83605; 84703; 85025; 87040; 87086; 87186; 87804; 93005; 93010; 99284-25; J0131; J7030